=== PATIENT | female | born 1995 | race Caucasian/White ===

== ENCOUNTER 2018-12-21 12:04 | Emergency (ER) | payer OTHER ==
[~2018-12-21] VITALS: Ht 165.1 cm; Wt 80.0 kg
[~2018-12-21 12:04] MED LIST: ROBITUSSIN AC10 ML OR; ZPAK OR
[2018-12-21] MEDS ORDERED: B12 SC (12:43)
[2018-12-21] MEDS ORDERED: VITAMIN D1000 UNIT PO (12:43)
[2018-12-21] MEDS ORDERED: CYMBALTA20 MG PO (12:44)
[2018-12-21] MEDS ORDERED: ZPAK PO (12:45)
[2018-12-21 14:07] VITALS: BP 121/68
== END 2018-12-21 14:07 | disposition home or self-care (01) | DRG 151 ==
LOC: ED 12:04
DX: R04.0 Epistaxis (principal); J32.9 Chronic sinusitis, unspecified; F41.9 Anxiety disorder, unspecified; G51.0 Bell's palsy